=== PATIENT | male | born 1960 | race Caucasian/White ===

== ENCOUNTER 2021-04-11 11:04 | Outpatient (CLI) | payer BC, SELFPAY ==
--- NOTE | 2021-04-11 11:10 | ECG_ITS ---
Measurements Intervals [place] Rate: 67 P: -1 [place]: 170 QRS: 33 QRSD: 93 T: 46 QT: 392 QTc: 415 Interpretive Statements SINUS RHYTHM NORMAL ECG NO PREVIOUS ECG AVAILABLE FOR COMPARISON Electronically Signed On 04-11-2021 14:05:21 [employer] by Abner Norris M.D.
[2021-04-11 12:57] LABS: Basophils Percent Auto 0.3 % (0.2-1.2); Eosinophils Absolute Auto 0.1 K/mm3 (0-0.3); Eosinophils Percent Auto 1.2 % (0-4.4); Hematocrit 42.1 % (42.0-52.0); Hemoglobin 14.4 g/dL (14.0-18.0); Immature Granulocyte Absolute 0.02 K/mm3 (0.00-0.031); Immature Granulocyte Percent A 0.3 % (0-0.5); Lymphocytes Absolute Auto 0.92 K/mm3 (0.9-3.2); Lymphocytes Percent Auto 15.8 % (18.3-44.2); Mean Corpuscular HGB Conc 34.2 g/dl (32-36); Mean Corpuscular Hemoglobin 30.6 pg (26-34); Mean Corpuscular Volume 89.4 fl (80-100); Mean Platelet Volume 10.2 fl (7.4-10.4); Monocytes Absolute Auto 0.4 K/mm3 (0.1-0.6); Monocytes Percent Auto 6.7 % (2.6-8.5); Neutrophils Absolute Auto 4.4 K/mm3 (1.3-6.7); Neutrophils Percent Auto 75.7 % (45.5-73.1); Platelet Count Result 232 k/mm3 (150-375); Red Blood Count 4.71 M/mm3 (4.6-6.20); Red Cell Distribution Width 12.7 % (11.5-14.5); White Blood Count 5.8 K/mm3 (4.5-10.0)
== END 2021-04-11 11:05 | disposition home or self-care (01) ==
LOC: ANHSURGERY 11:07
PROVIDERS: PCP Family Medicine; Visit Provider Surgery
DX: K40.90 Unilateral inguinal hernia, without obstruction or gangrene, not specified as recurrent (principal)
CPT/HCPCS: 36415; 85025; 93005

== ENCOUNTER → 2021-04-14 00:02 | Outpatient (CLI) | payer BC, SELFPAY ==
[2021-04-14 12:24] LABS: SARS-CoV-2 RNA PCR Negative
== END ==
PROVIDERS: PCP Family Medicine; Visit Provider Surgery
DX: Z01.812 Encounter for preprocedural laboratory examination (principal); Z20.822 Contact with and (suspected) exposure to COVID-19
CPT/HCPCS: C9803; U0003; U0005

== ENCOUNTER 2021-04-17 01:25 | Day surgery (SDC) | payer BC, SELFPAY ==
[2021-04-10 13:06] VITALS: BMI 30.7
--- NOTE | 2021-04-10 13:43 | PC.NURSE ---
Report to the Outpatient Waiting Room, entrance under the green pavilion located off [facility], at time __1000_ on date 04/17/21. OR Time: ___1200 . IF YOUR SURGERY TIME IS CHANGED YOU WILL BE NOTIFIED ON FRIDAY AFTERNOON 04/16/21 - You and your visitor will be asked a series of questions to screen for COVID 19 for your protection. - A mask is required within the hospital. Preoperative COVID Testing Requirements: No COVID Test needed if: (proof is required; if not received patient will have Rapid Test prior to entry) - Patient has received COVID Vaccine at least 14 days prior to procedure date or - Patient has positive COVID test result within last 90 days of surgery date. COVID Test needed if above criteria is not met If not COVID vaccinated a COVID test must be conducted within 72 hours of surgery and patient is asked to isolate self from time of testing until procedure. You will go to the [facility] for your COVID testing. The [employer] [facility] is located at the corner of [address] [facility]. You will only be called if COVID results are positive and your surgeon may reschedule your elective surgery date. Patients may have clear liquids (water, carbonated beverages, clear teas, apple juice) until 3 hours prior to surgery with a maximum of 20 ounces. - No food from midnight until time of surgery - Infants may have breast milk until 4 hours before surgery, infant formula 6 hours prior to surgery. - Children will be allowed to drink immediately following surgery. If applicable, please bring a bottle or sippy cup to assist with drinking. Juice, water, soda, and popsicles are readily available. For infants on formula, please bring formula the day of surgery. Pacifiers are allowed. Take the following medications with a SIP of water the morning of surgery: _N/A Medications to discontinue per physician __HOLD VITAMINS/SUPPLEMENTS 04/14/21___ Date to take last dose Please no make-up, nail vietnamese, hairspray, perfume, deodorant, or body powder the day of surgery. No jewelry (including any body piercings) or valuables the day of surgery, leave them at home. Please take a shower or bath the night before, or the morning of, surgery with an antibacterial soap. Wear comfortable, loose fitting clothing. Children are encouraged to wear pajamas. - Jewelry must be removed prior to entering the operating room. Rings and piercings that are not removed may be cut off. - The hospital will not accept responsibility for valuables. - Please leave all valuables, including medications, at home the day of surgery. If you are going home after surgery, a licensed funeral limousine driver must drive you home. - NO public transportation without another adult. - We recommend that an adult stay with you for 24 hours following discharge. - We also recommend that you do not drive, make important decision, drink alcoholic beverages, or take any drugs that were not prescribed by your health care provider for at least 24 hours after your discharge time. For Pediatric surgeries, we recommend two adults accompany the child home (only one inside the building at this time). One visitor will be allowed to accompany the patient into the hospital. Patients visitor will be instructed to remain with patient at all times or leave the building. We will allow the visitor to come back to the postoperative area when patient is ready. Follow any additional instructions given to you from your surgeon. SHOWER WITH CHLORHEXIDINE SOAP THE MORNING OF SURGERY Telephone instructions given to _KEVIN__and asked if any additional questions and then verbalized understanding. Patient advised to call surgeon office or pre surgery nurse liaison [phone] if any additional questions.
--- NOTE | 2021-04-16 18:31 | PM.HPGS ---
History of Present Illness History of Present Illness Consent: Risks, benefits, and alternatives of an open left inguinal hernia repair with mesh have been discussed and questions answered. Patient agrees to proceed with procedure. Chief complaint: left inguinal hernia Narrative: Patrick Humphrey is a 60 year old white male that recently presented to the office at the request of Janie Monte NP for an evaluation of an inguinal hernia. Patient reports that he has had a bulge in his left groin that is reducible for about 2 years now. He reports the the bulge does cause some discomfort occasionally. He states the pain usually occurs when the hernia is protruding out. He states if this occurs he just reduces it and the pain resolves. He also reports that the hernia seems to occasionally makes gas noises. Patient reports that his last colonoscopy was completed in 2018 and he is to follow up with another colonoscopy in 5 years due to polyps that were noted then. He reports that he noticed the hernia about 6 months after donating one of his kidneys, for a friend. He said that the first thing he noticed was the bulge in the Lt. groin area. As far as medications he only take vitamins on a daily bases. He is a former smoker, but he stopped 20 years ago. He is not aware of any family history of hernias. Review of Systems Review of Systems: All systems reviewed & are unremarkable except as noted in HPI and below Reports no additional complaints, Denies frequent falls, Denies headache(s) and Reports other (no recent weight change, no fever) Eyes Denies blurry vision, Denies itchy eyes, Denies photophobia and Denies spots in vision ENT Reports Normal hearing present, Denies headache(s), Denies hoarseness, Denies lip swelling and Denies sore throat Card Denies chest pain at rest, Denies irregular heart rhythm and Denies dyspnea Resp Denies chest congestion, Denies cough and Denies dyspnea GI Denies melena and Denies coffee ground emesis Details: After his 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 We obtained a copy of this from [facility]. It did show a somewhat enlarged left inguinal hernia compare to his CT prior to his nephrectomy. It also showed some minor thickening of the bladder. Musc Denies abnormal gait and Denies back pain Skin/Breast Denies new lesions, Denies rash and Denies wounds Neuro Reports Normal hearing present, Denies abnormal gait, Denies confusion, Denies frequent falls, Denies headache(s), Denies convulsions and Denies seizure-like activity Psych Denies confusion and Denies depression Endo Denies cold intolerance and Denies heat intolerance Andrea/Lymph Denies easy bleeding, Denies easy bruising and Denies lymphadenopathy Aller/Immun Denies itchy eyes, Denies lip swelling and Reports seasonal rhinorrhea PMFSH Past Medical History Medical History Acquired solitary kidney donated LT kidney Surgical History Surgical History (Updated 02/22/21 @ 16:42 by Matias Shelton MD) History of nephrectomy Patient donated kidney to friend. History of rotator cuff surgery right Family History Family History Mother Diabetes mellitus Heart disease Hypertension Hyperlipidemia ESRD (end stage renal disease) Father Parkinson disease Sibling No problems noted. Other Family history of malignant neoplasm Social History Social History Social History: Smoking packs per day: 1 Smoking cigarettes per day: 20.0 Years smoked: 20 Smoking pack-years: 20.00 Smoking status: Former smoker Tobacco type: cigarettes Second hand tobacco smoke exposure: No Smoking end date: 02/11/00 Alcohol intake: current Drinks per week: 5 Substance use: never
[2021-04-17] MEDS: CHLORHEXIDINE GLUCONATE 4% SOL 120 ML BTL 1 APPLIC TOPICAL (06:00)
[2021-04-17 10:18] VITALS: BMI 31.6
--- NOTE | 2021-04-17 10:37 | P.PNAN_ITS ---
Anes - Initial Pre Proc Eval Procedure: Operation Date: 04/17/21 12:00 Proposed Procedures p Open Left Inguinal Hernia Repair with Mesh - Matias Shelton MD Date/Time: 04/17/21 10:37 Surgeon: Matias Shelton MD Pre Op Diagnosis: left inguinal hernia Patient Data Age: 60 Gender: M Height: 1.61 m Weight: 82.3 kg Allergies Allergy/AdvReac Type Severity Reaction Status Date / Time No Known Allergies Allergy Verified 04/17/21 10:25 Home Medications Medication Instructions Recorded Confirmed Type ascorbate calcium (vitamin C) 500 500 mg PO DAILY 10/02/20 04/17/21 History mg tablet magnesium 250 mg tablet 250 mg PO DAILY 10/02/20 04/17/21 History ibbnaxtdjxfb-ivc-cssie acid-vit 1 tablet PO DAILY 10/02/20 04/17/21 History K-lycop 400 mcg-20 mcg-370 mcg tablet hydrocodone-acetaminophen 1 tablet PO Q6H PRN #20 tablet 04/17/21 Rx Patient hx anesthesia problems: none Family hx anesthesia problems: none Results Review: All pre-operative results and documents have been reviewed as part of the pre-operative evaluation. [facility] Past Medical History Medical History Acquired solitary kidney donated LT kidney Surgical History Surgical History (Updated 02/22/21 @ 16:42 by Matias Shelton MD) History of nephrectomy Patient donated kidney to friend. History of rotator cuff surgery right Family History Family History Mother Diabetes mellitus Heart disease Hypertension Hyperlipidemia ESRD (end stage renal disease) Father Parkinson disease Sibling No problems noted. Other Family history of malignant neoplasm Social History Social History Social History: Smoking packs per day: 1 Smoking cigarettes per day: 20.0 Years smoked: 20 Smoking pack-years: 20.00 Smoking status: Former smoker Tobacco type: cigarettes Second hand tobacco smoke exposure: No Smoking end date: 02/11/00 Alcohol intake: current Drinks per week: 5 Substance use: never Substance use type: does not use Last use: 1999 Living arrangements: with family Gender identity (if verbalized by the patient): Male Sexual Orientation (if Verbalized by the Patient): Straight or Heterosexual Spiritual care concerns: No Anes - Eval Final PreProcedure Day of Procedure 04/17/21 10:37 Patient weight: obese Heart: regular rate and rhythm Lungs: clear to auscultation and normal air movement Airway: Mallampati scale class II Neurological: alert and oriented Last oral intake: >/= 8 hours ASA classification: II Emergent: no Anesthetic plan: proceed Anesthesia type and monitoring: general GIVS and standard monitoring Results Review: All pre-operative results and documents have been reviewed as part of the pre-operative evaluation. Informed Consent: The patient's anesthetic plan and its attendant risks and benefits were discussed with the patient/family/POA. Questions were solicited and answers provided to the satisfaction of the patient/family/POA.
[2021-04-17] MEDS: KETOROLAC 15 MG/ML VIAL (*BKC) IV PUSH (10:39)
[2021-04-17] MEDS: ACETAMINOPHEN 500 MG TABLET 1000 MG PO (10:39)
[2021-04-17] MEDS: LACTATED RINGERS 1,000 ML 30 ML IV CONT ×2 (10:44→14:14)
[2021-04-17 10:45] VITALS: BP 124/81; PULSE 63; RESP 18; TEMP 36.7; O2SAT 99
--- NOTE | 2021-04-17 11:37 | WPDHPUPDATE1 ---
History and Physical Update Update Date/Time: 04/17/21 11:37 History and Physical has been reviewed, including an updated exam of the patient. There are NO changes in the patient's condition. Risks, benefits, and alternatives have been discussed and questions answered. Patient agrees to proceed with procedure.
[2021-04-17] MEDS: ceFAZolin 2 GM/D5W 50 ML 2 GM/50 ML BAG IVPB (11:46)
[2021-04-17] MEDS: BUPIVACAINE HCL 0.5% PF 30 ML VIAL INFILTRATE (14:06)
[2021-04-17 14:14] VITALS: BP 136/71; PULSE 89; RESP 16; O2SAT 93
[2021-04-17] MEDS: fentaNYL CITRATE INJ (*CRX) 100 MCG/2 ML VIAL 25 MCG IV PUSH ×4 (14:18→14:39)
--- NOTE | 2021-04-17 14:19 | W.PM.PROC2 ---
Procedure Note - Detailed Date of Procedure 04/17/21 Pre-op Diagnosis left inguinal hernia Post-op Diagnosis Other (Left direct and indirect inguinal hernia) Procedure Performed Open inguinal hernia repair with mesh Surgeon Matias Shelton MD Structural Engineering Technician Aneta DING, OR 1st assist Anesthesia General, Local (With mixture of 1% xylocaine with epinephrine and 0.5% Marcaine plain.) and Other (GIVS) Indications Bulging and discomfort in the left groin Findings Patient had a very thinned out floor of the left inguinal area. He had a fairly long sliding left inguinal hernia associated with a lipoma of the cord. Description of Procedure The patient was placed in the supine position on the operating room table. After induction of adequate GIVS anesthesia by [facility] Anesthesia staff, we carefully prepped the entire abdomen and scrotum(with Betadine --for urogenital area) with chlorhexidine. One sterile towel was placed underneath the scrotum. Four towels were placed around the left lower quadrant. Following this, a time-out was performed with the surgical team and the patient's surgical procedure and site was confirmed. We then carefully outlined a curvilinear incision in the left groin area and a curvilinear incision was made after introducing a mixture of local anesthetic, using 0.5% Marcaine plain and 1% Xylocaine with epinephrine as both an ilioinguinal nerve block and at the incision site with a 25 gauge needle. Following this, I carefully made the incision, and carried it down through the subcutaneous tissue. Anthony's fascia was incised and then we identified the external oblique aponeurosis and the external ring. Following this, the same mixture of local anesthetic was infiltrated underneath the external oblique aponeurosis and this was split in the direction of it's fibers with a #15 blade initially and then using Metzenbaum scissors. I then opened the external oblique through the external ring and incised this somewhat posteriorly and superiorly exposing the ilioinguinal nerve. This nerve was carefully preserved laterally and then I carefully and meticulously dissected out the cord structures at the level of the pubic tubercle. I then surrounded these structures at the level of pubic tubercle and placed a Hammad drain around them. I then carefully dissected the hernia sac up and off of the cord tissues, and brought it up and out of the incision. We carefully dissected the layers and cremasteric tissues off the hernia sac and then eventually opened the hernia sac. Holding this up with 4 hemostats, I carefully dissected it off the cord structures, being careful to avoid injury to the Pampiniform plexus veins, the spermatic artery and the vas. Once the hernia sac was carefully dissected back to the level of the internal ring, a suture ligation pursestring suture of 2-0 silk was used to close the neck of the hernia sac. Then distally the hernia sac was amputated with Bovie cautery. It along with elements consistent with a lipoma of the cord was then passed off the field for pathologic evaluation. It was noted at this point that the patient had a definite weakness in the direct space or floor of the left inguinal area. Following this, we took care to recreate an appropriate inguinal canal. This was done by carefully dissecting from the internal ring down to the pubic bone, dissecting away any cremasteric tissue. The weakness in the floor of Hesselbach's triangle was repaired by running a suture of 0 Prolene starting in the pubic tubercle and running it up to the internal ring, approximating the very thinned out Transversalis fascia and some of the edge of the internal oblique fascia to the ilioinguinal ligament. The remaining opening for the internal ring was checked and was slightly larger than a fingerbreadth. Therefore, one more [id number] suture of 2-0 Ethibond was used to narrow this opening to just slightly less thing
[2021-04-17 14:40] VITALS: BP 151/84; PULSE 70; RESP 16; O2SAT 97
[2021-04-17] MEDS: oxyCODONE HCL (*CRX) 5 MG TAB IR PO (15:08)
[2021-04-17 15:10] VITALS: BP 156/80; PULSE 77; RESP 16
[2021-04-17 15:40] VITALS: BP 154/75; PULSE 72; RESP 16
== END 2021-04-17 15:55 | disposition home or self-care (01) ==
PROVIDERS: PCP Family Medicine; Visit Provider Surgery
PROC: (CPT 49525; principal; 2021-04-17 12:00)
DX: K40.90 Unilateral inguinal hernia, without obstruction or gangrene, not specified as recurrent (principal); Z90.5 Acquired absence of kidney; Z87.891 Personal history of nicotine dependence; E66.9 Obesity, unspecified; Z68.31 Body mass index [BMI] 31.0-31.9, adult
CPT/HCPCS: 49525; 88302; A9270; C1781; C9803; J0690; J1885; J2250; J2370; J2704; J3010; J7120; U0003; U0005